=== PATIENT | male | born 1980 | race Caucasian/White ===

== ENCOUNTER 2021-08-28 16:52 | Emergency (ER) | payer OTHER, SELFPAY ==
[2021-08-28 17:04] VITALS: BP 158/97; PULSE 67; RESP 18; TEMP 36.9; O2SAT 100
--- NOTE | 2021-08-28 17:48 | ED.WOUNDLAC ---
HPI - Wound/Laceration General Chief Complaint: Wound/Laceration Stated Complaint: Cut Thumb Lt Hand Time Seen by Provider: 08/28/21 17:25 Source: patient Mode of arrival: ambulatory Limitations: no limitations History of Present Illness HPI narrative: Jd Bah is a 41 yo male with a PMH of HTN comes to [facility] with a laceration to his left thumb that he flapped the lateral left side of the thumb alongside the nail when cutting an apple about 2 hours ago-wound continues to bleed somewhat, wound soaked so that can be sutured Patient had COVID-vaccine and just got booster Related Data Home Medications Medication Instructions Recorded Confirmed amlodipine 10 mg PO DAILY 08/28/21 08/28/21 hydrochlorothiazide 25 mg PO DAILY 08/28/21 08/28/21 paroxetine HCl 40 mg PO DAILY 08/28/21 08/28/21 Allergies Allergy/AdvReac Type Severity Reaction Status Date / Time Penicillins Allergy Mild rash Verified 08/28/21 17:05 Review of Systems Review of Systems: CONSTITUTIONAL: Denies fever, chills, sweats. EYES: Denies visual changes, redness, discharge. ENT: Denies rhinorrhea, congestion, sore throat, otalgia. CARDIOVASCULAR: Denies chest pain, palpitations, edema. RESPIRATORY: Denies dyspnea, wheezing, cough GASTROINTESTINAL: Denies abdominal pain, nausea, vomiting, diarrhea. GENITOURINARY: Denies dysuria, hematuria, abnormal discharge SKIN: Denies rash or itching. NEUROLOGIC: Denies numbness, or focal weakness. PSYCHIATRIC: Denies anxiety or depression. Laceration left thumb, distal lateral side PMFSH Past Medical History Medical History HTN (hypertension) Family History Family History (Updated 08/28/21 @ 17:51 by Mamie Goyal CNP) Other Heart disease High cholesterol Hypertension Social History Social History (Updated 08/28/21 @ 17:51 by Mamie Goyal CNP) Smoking status: Never smoker Alcohol intake: current Comments At time of signature, I agree with nursing past medical, surgical, social and family history. There is no relevant family history pertinent to the presenting complaint. Exam Narrative: GENERAL: This is a well-nourished, well-developed patient, in mild distress. HEAD: normocephalic, atraumatic. EYES:Sclera clear/white. Vision is grossly intact. EARS: External ears normal,. Hearing grossly intact. NOSE: External nose normal without nasal discharge, nares without redness, no rhinorrhea. THROAT: Mucous membranes moist, NECK: Neck supple, CARDIOVASCULAR: Regular rate and rhythm without murmurs, gallops, or rubs. RESPIRATORY: Clear to auscultation. Breath sounds equal bilaterally. No wheezes, rales, or rhonchi. GASTROINTESTINAL: Abdomen soft, SKIN: warm, intact with no suspicious lesions or rash, good texture and turgor. Laceration about 3 cm to left thumb lateral side, moderate bleeding NEURO: awake, alert, and oriented to person, place and time. There were no obvious focal neurologic abnormalities. Steady gait EXTREMITIES: Normal range of motion. BACK: Nontender without deformity Course Course Emergency Course: Patient came laceration to lateral left thumb Laceration repaired tetanus immunization is up-to-date Given directions on care post laceration repair Level of Care: Express Care Visit Vital Signs Vital signs: Vital Signs Temperature 98.5 F 08/28/21 17:04 Pulse Rate 67 08/28/21 17:04 Respiratory Rate 18 08/28/21 17:04 Blood Pressure 158/97 H 08/28/21 17:04 Pulse Oximetry 100 08/28/21 17:04 Temperature 98.5 F 08/28/21 17:04 Pulse Rate 67 08/28/21 17:04 Respiratory Rate 18 08/28/21 17:04 Blood Pressure 158/97 H 08/28/21 17:04 Pulse Oximetry 100 08/28/21 17:04 Procedures Laceration Laceration 1: Date: 08/28/21 Time: 17:29 Site: hand Side (If applicable): left Size (cm): 3 Description: flap Depth: simple, single layer
== END 2021-08-28 17:59 | disposition home or self-care (01) ==
PROVIDERS: Emergency Provider Nurse Practitioner
DX: S61.012A Laceration without foreign body of left thumb without damage to nail, initial encounter (principal); W26.0XXA Contact with knife, initial encounter; I10 Essential (primary) hypertension
CPT/HCPCS: 12002; 99212; G0463

== ENCOUNTER 2024-06-04 00:18 | Day surgery (SDC) | payer OTHER, SELFPAY ==
[2024-05-30 08:06] VITALS: BMI 28.9
--- NOTE | 2024-05-30 08:11 | PC.NURSE ---
Report to the Outpatient Waiting Room, entrance under the green pavilion located off [facility], at time _0630_ on date _[id number]_. Planned Procedure Time: _0730_.? Time changes happen often and if your time is changed the preop area will call you the afternoon before. - You and your visitor will be asked to self-screen and do not enter if you have any COVID symptoms. Please call surgeon if you need to reschedule. - A mask is optional within the hospital at this time. Early light breakfast OK, Nothing to eat or drink after 530am. Take only the following medications with a SIP of water on the morning of surgery___All medications OK to take. DO NOT STOP ANY OF YOUR OTHER PRESCRIPTION MEDICATIONS PRIOR TO SURGERY EXCEPT THE FOLLOWING Medications to discontinue per physician ____None Please no make-up, nail andorran, hairspray, perfume, deodorant, or body powder the day of surgery.? No jewelry (including any body piercings) or valuables the day of surgery, leave them at home.? Please take a shower or bath the night before, or the morning of, surgery with an antibacterial soap.? Wear comfortable, loose fitting clothing.? - Jewelry must be removed prior to entering the operating room.? Rings and piercings that are not removed may be cut off. - The hospital will not accept responsibility for valuables.? - Please leave all valuables, including medications, at home the day of surgery. If you are going home after surgery, a licensed medical van driver must drive you home.? - NO public transportation without another adult if you receive anesthesia. - We recommend that an adult stay with you for 24 hours following discharge. - We also recommend that you do not drive, make important decision, drink alcoholic beverages, or take any drugs that were not prescribed by your health care provider for at least 24 hours after your discharge time. Follow any additional instructions given to you from your surgeon. Telephone instructions given to __Jd___and asked if any additional questions and then verbalized understanding. Patient advised to call surgeon office or pre surgery nurse liaison [phone] if any additional questions.
--- NOTE | ~2024-06-04 | XR_ITS ---
XR fluoroscopy no charge Indication:L4-5 and L5-S1 transforaminal epidural steroid injection TECHNIQUE: Fluoroscopy used during L4-5 and L5-S1 transforaminal epidural steroid injection performe d by [Nehemiah Tao MD] on 06/04/2024. 51 seconds of fluoroscopy with 131 fluoroscopic images captured. FINDINGS: Correlate with procedure note. IMPRESSION: Fluoroscopy used during L4-5 and L5-S1 transforaminal epidural steroid injection. Reviewed, dictated and finalized at location B. IMPRESSION: Fluoroscopy used during L4-5 and L5-S1 transforaminal epidural ster oid injection.
[2024-06-04 08:40] VITALS: BMI 28.9
[2024-06-04 08:43] VITALS: BP 151/81; PULSE 67; RESP 16; TEMP 37.1; O2SAT 99
--- NOTE | 2024-06-04 08:55 | WPDHPUPDATE1 ---
History and Physical Update Update Date/Time: 06/04/24 08:55 History and Physical has been reviewed, including an updated exam of the patient. There are NO changes in the patient's condition. Risks, benefits, and alternatives have been discussed and questions answered. Patient agrees to proceed with procedure.
--- NOTE | 2024-06-04 08:56 | W.PM.PROC2 ---
Procedure Note - Detailed Date of Procedure 06/04/24 Pre-op Diagnosis lumbosacral radiculopathy Post-op Diagnosis Same Procedure Performed Right lumbosacral Transforaminal Epidural Steroid Injection under Fluoroscopic Guidance and with Contrast Control at L4-5, L5-S1. Surgeon Nehemiah Tao MD Anesthesia Local Description of Procedure INFORMED CONSENT: Risks, benefits and alternatives to the procedure were discussed in detail with the patient who expressed explicit understanding and consent to proceed. Patient was informed verbally and in written form regarding the risks associated with the procedure including the low risk of serious infection, bleeding/bruising, allergic reaction, nerve or organ injury, paralysis, procedural site pain or discomfort, worsening pain and/or mobility, failure to treat and/or disfigurement. The patient expressed explicit understanding and consent to proceed. All materials required for the procedure were available prior to procedure start. Site and side was marked prior to procedure and confirmed in the presence of the patient. PROCEDURE IN DETAIL: The patient was brought to the procedural suite and placed in the prone position. Patient was made comfortable with use of pillows under the head/chest, hips and ankles. Skin overlying the injection site was prepared broadly with ChloraPrep applicator and draped in a sterile manner. Aseptic technique was employed throughout. The endplates of the vertebral body at the site of interest were aligned in the AP view. Ipsilateral oblique angulation was utilized to better visualize the neuroforamen of interest. Local anesthesia was established by infiltration with approximately 5 mL of 0.5% PF lidocaine via a 1-1/2 inch 27-gauge needle. A 22-gauge 3.5 inch Vani (pencil point) spinal needle was advanced until the needle approached the 6 o'clock position on the pedicle just superior to the exiting nerve root. on the right at L4-5. Lateral view was utilized to confirm appropriate position of the needle tip within the superior and posterior portion of the respective foramen. In an AP view, 1 mL of Omnipaque 300 contrast medium was injected after negative aspiration for CSF, blood or other bodily fluid, showing appropriate neurogram without evidence of intravascular or intrathecal spread of contrast. Digital subtraction imaging was used with an additional 1ml of the same contrast medium to confirm absence of intravascular contrast spread. A 1mL solution containing 3 mg of betamethasone was injected after negative repeat aspiration. Appropriate spread of the injectate was confirmed with washout of previously injected contrast. No parasthesias were elicited. Needle was removed completely intact without difficulty. The same exact procedure was repeated for all remaining levels on the ipsilateral side, right L5-S1 neuroforamen, modified as necessary to accommodate for the new target location with identical findings and results and no evidence of complication. Images were saved and documented in the patient chart. Patient's skin was cleaned and sterile bandage applied. The patient tolerated the procedure well. The patient was transported to the recovery area in stable condition where they were observed for an appropriate amount of time prior to discharge, without evidence of complication. The patient was instructed to avoid excessive activity for the next 48 hours, including climbing and frequent use of stairs. Showers only for 48 hours. They were instructed not to drive or operate heavy machinery for 24 hours. They are to monitor for severe headaches, fevers, chills, night sweats, erythema/swelling at the site or any other signs of infection, bleeding/bruising, bowel or bladder changes as well as new pain, weakness or numbness in the upper or lower extremity. Should they notice these changes, they are instructed to call our office immediately or report directly to the nearest Emergency Department if no answ
[2024-06-04 09:19] VITALS: BP 135/95; PULSE 72; RESP 16; O2SAT 98
[2024-06-04] MEDS: BETAMETHASONE SODIUM PHOSPHATE PF INJ 6 MG/ML VIAL INFILTRATE (09:19)
[2024-06-04 09:25] VITALS: BP 146/102; PULSE 61; RESP 16; O2SAT 97
[2024-06-04] MEDS: LIDOCAINE HCL 2% PF INJ 5 ML VIAL 1 ML INFILTRATE (09:29)
[2024-06-04 09:30] VITALS: BP 141/94; PULSE 62; RESP 16; O2SAT 97
[2024-06-04] MEDS: LIDOCAINE HCL 1% PF INJ 5 ML VIAL INFILTRATE (09:34)
[2024-06-04 09:40] VITALS: BP 143/87; PULSE 61; RESP 16; O2SAT 100
== END 2024-06-04 10:08 | disposition home or self-care (01) ==
PROVIDERS: PCP Nurse Practitioner; Visit Provider Anesthesiology Pain Medicine
PROC: (CPT 64483; principal; 2024-06-04 09:00)
DX: M48.062 Spinal stenosis, lumbar region with neurogenic claudication (principal); M47.27 Other spondylosis with radiculopathy, lumbosacral region; G89.29 Other chronic pain; I10 Essential (primary) hypertension; Z80.42 Family history of malignant neoplasm of prostate; Z80.1 Family history of malignant neoplasm of trachea, bronchus and lung; Z82.49 Family history of ischemic heart disease and other diseases of the circulatory system
CPT/HCPCS: 64483; 64484; 99199; J2003; Q9965